=== PATIENT | male | born 1950 | race Caucasian/White ===

== ENCOUNTER → 2021-01-15 | Outpatient (CLI) | payer BC, MEDICARE ==
[~2021-01-15] MED LIST: REGADENOSON 0.4 MG/5 ML SYRINGE ONE
== END | disposition home or self-care (01) ==
LOC: CFH 12:55
PROVIDERS: ATTEND Internal Medicine Cardiovascular Disease
DX: I35.8 Other nonrheumatic aortic valve disorders (principal); I10 Essential (primary) hypertension; I25.2 Old myocardial infarction; Z98.61 Coronary angioplasty status
CPT/HCPCS: 78452; 93017; 93306; A9502; J2785